=== PATIENT | male | born 1940 | race Caucasian/White ===

== ENCOUNTER 2018-10-07 21:14 | Emergency (ER) | payer BC ==
[2018-10-07] MEDS: ONDANSETRON (ODT) 4 MG TAB ODT (22:10)
[2018-10-07] MEDS: morphine 4 MG/ML VIAL IM (22:10)
[2018-10-07] MEDS: HYDROmorphONE 0.5 MG/0.5 ML SYG IV (23:13)
[2018-10-07] MEDS: HYDROmorphONE 0.5 MG/0.5 ML SYG IM (23:21)
== END 2018-10-08 01:37 | disposition home or self-care (01) ==
LOC: FTE 10-08 01:37
DX: S43.015A Anterior dislocation of left humerus, initial encounter (principal); I11.0 Hypertensive heart disease with heart failure; I50.9 Heart failure, unspecified; X50.0XXA Overexertion from strenuous movement or load, initial encounter; Y92.9 Unspecified place or not applicable; Z79.01 Long term (current) use of anticoagulants
CPT/HCPCS: 23650; 73020; 73030; 96372; 99284-25

== ENCOUNTER 2019-06-06 06:15 | Emergency (ER) | payer BC ==
[2019-06-06] MEDS: ONDANSETRON 4 MG INJ IV (07:14)
[2019-06-06] MEDS: HYDROmorphONE 1 MG/ML SYG IV (07:14)
== END 2019-06-06 08:07 | disposition home or self-care (01) ==
LOC: E/R 06:15
DX: M25.511 Pain in right shoulder (principal); I11.0 Hypertensive heart disease with heart failure; I50.9 Heart failure, unspecified; Z79.01 Long term (current) use of anticoagulants
CPT/HCPCS: 73030; 73030-RT; 96374; 96375; 99284-25

== ENCOUNTER 2019-08-06 07:53 | Emergency (ER) | payer BC ==
[2019-08-06 08:42] LABS: ADD MAN DIFF? NO
[2019-08-06 08:43] LABS: WHITE BLOOD COUNT 5.2 10^3/ul (4.8-10.8)
[2019-08-06 08:43] LABS: ABNORMAL IP MESSAGE 1; BASOPHILS % 0.2 % (0.0-2.0); HEMATOCRIT 23.3 % (42.0-52.0); HEMOGLOBIN 7.4 g/dl (14.0-18.0); LYMPHOCYTES # 0.5 10^3/ul (0.8-2.9); LYMPHOCYTES % 9.2 % (15.0-51.0); MEAN CORPUSCULAR HEMOGLOBIN 30.2 pg (29.0-33.0); MEAN CORPUSCULAR HGB CONC 31.8 g/dl (32.0-37.0); MEAN CORPUSCULAR VOLUME 95.1 fl (82.0-101.0); MEAN PLATELET VOLUME 10.1 fl (7.4-10.4); MONOCYTE # 0.6 10^3/ul (0.3-0.9); MONOCYTES % 11.5 % (0.0-11.0); NEUTROPHIL # 4.1 10^3/ul (1.6-7.5); NEUTROPHILS % 78.9 % (39.0-77.0); PLATELET COUNT 133 10^3/UL (140-415); POSITIVE DIFF @See below; RED BLOOD COUNT 2.45 10^6/ul (4.70-6.10); RED CELL DISTRIBUTION WIDTH 14.2 % (11.5-14.5)
[2019-08-06 09:00] LABS: ANION GAP 9 (5-13); BLOOD UREA NITROGEN 43 mg/dl (7-20); CALCIUM 9.4 mg/dl (8.4-10.2); CARBON DIOXIDE 28 mmol/L (21-31); CHLORIDE 97 mmol/L (97-110); CREATININE 1.91 mg/dl (0.61-1.24); GLUCOSE 103 mg/dl (70-220); POTASSIUM 4.8 mmol/L (3.5-5.1); SODIUM 134 mmol/L (135-144)
[2019-08-06 09:11] LABS: INR 1.03; PARTIAL THROMBOPLASTIN TIME 39.9 Sec (23.0-35.0); PROTIME 13.6 Sec (11.9-14.9); PT RATIO 1.1
== END 2019-08-06 09:55 | disposition left against medical advice (07) ==
LOC: E/R 07:53
DX: K91.840 Postprocedural hemorrhage of a digestive system organ or structure following a digestive system procedure (principal); I11.0 Hypertensive heart disease with heart failure; I50.9 Heart failure, unspecified; D64.9 Anemia, unspecified; Z79.01 Long term (current) use of anticoagulants; Z86.73 Personal history of transient ischemic attack (TIA), and cerebral infarction without residual deficits; Z95.2 Presence of prosthetic heart valve
CPT/HCPCS: 36415; 80048; 85025; 85610; 85730; 99283